=== PATIENT | male | born 1965 | race Native Hawaiian/Other Pacific Islander ===

== ENCOUNTER → 2017-12-16 08:25 | Outpatient (CLI) | payer OTHER, SELFPAY ==
[2017-12-16 09:29] LABS: Hemoglobin A1C% w Est Avg Glu 5.7 % (4.0-6.0)
[2017-12-16 09:30] LABS: Alanine Aminotransferase 47 IU/L (21-72); Albumin 4.3 g/dL (3.5-5.0); Albumin Globulin Ratio 1.5 (1.0-2.8); Alkaline Phosphatase 52 U/L (38-126); Aspartate Aminotransferase 31 IU/L (17-59); BUN Creatinine Ratio 12.7 (6-22); Bilirubin Total 0.7 mg/dL (0.2-1.3); Blood Urea Nitrogen 14 mg/dL (9-20); Calcium 9.2 mg/dL (8.4-10.2); Carbon Dioxide 29 mmol/L (22-32); Chloride 102 mmol/L (98-107); Cholesterol 135 mg/dL (140-199); Estimated Glomerular Filt Rate > 60.0 mL/min (>60); Globulin 2.9 g/dL (1.7-4.1); Glucose 111 mg/dL (70-100); HDL Cholesterol 31 mg/dL (40-60); HEMOLYSIS < 15 (0-50); LDL Cholesterol Calculated 78 mg/dL (<100); Potassium 4.1 mmol/L (3.4-5.1); Sodium 140 mmol/L (137-145); Total Protein 7.2 g/dL (6.3-8.2); Triglycerides 130 mg/dL (35-150)
[2017-12-16 09:39] LABS: Add Manual Diff / Slide Review NO; Basophils Percent Auto 1.2 % (0-2); Eosinophils Percent Auto 5.6 % (2-4); Hematocrit 45.4 % (41-53); Hemoglobin 15.6 g/dL (13.5-17.5); Lymphocytes Percent Auto 23.5 % (25-40); Mean Corpuscular HGB Conc 34.4 % (30-36); Mean Corpuscular Hemoglobin 29.1 PG (26-34); Mean Corpuscular Volume 84.6 fL (80-100); Monocytes Percent Auto 7.5 % (3-14); Neutrophils Absolute Auto 3700 /uL (3000-5900); Neutrophils Percent Auto 62.2 % (50-75); Platelet Count 253 X10^3/uL (150-400); Red Blood Cell Count 5.37 X10^6/uL (4.5-5.9); Red Cell Distribution Width 15.4 % (11.6-14.8)
[2017-12-16 09:56] LABS: Prostate Specific Antigen 0.599 ng/mL (0.10-4.00)
== END ==
PROVIDERS: PCP Family Medicine; Visit Provider Family Medicine
DX: I10 Essential (primary) hypertension (principal); R73.9 Hyperglycemia, unspecified; E78.00 Pure hypercholesterolemia, unspecified; Z12.5 Encounter for screening for malignant neoplasm of prostate
CPT/HCPCS: 36415; 80053; 80061; 83036; 84153; 85025

== ENCOUNTER → 2019-02-04 09:45 | Outpatient (CLI) | payer OTHER, SELFPAY ==
[2019-02-04 10:54] LABS: Creatinine Urine Random 147.2 mg/dL
[2019-02-04 10:56] LABS: Alanine Aminotransferase 29 IU/L (21-72); Albumin 4.5 g/dL (3.5-5.0); Albumin Globulin Ratio 1.6 (1.0-2.8); Alkaline Phosphatase 58 U/L (38-126); Aspartate Aminotransferase 41 IU/L (17-59); BUN Creatinine Ratio 12.7 (6-22); Blood Urea Nitrogen 14 mg/dL (9-20); Calcium 9.4 mg/dL (8.4-10.2); Carbon Dioxide 28 mmol/L (22-32); Chloride 101 mmol/L (98-107); Cholesterol 114 mg/dL (140-199); Estimated Glomerular Filt Rate > 60.0 mL/min (>60); Globulin 2.9 g/dL (1.7-4.1); Glucose 119 mg/dL (70-100); HDL Cholesterol 27 mg/dL (40-60); HEMOLYSIS < 15 (0-50); LDL Cholesterol Calculated 61 mg/dL (<100); Potassium 4.5 mmol/L (3.4-5.1); Sodium 138 mmol/L (137-145); Total Protein 7.4 g/dL (6.3-8.2); Triglycerides 129 mg/dL (35-150)
[2019-02-04 11:05] LABS: Microalbumin Urine Random < 0.6 mg/dL (0-1.6)
[2019-02-04 11:17] LABS: Hemoglobin A1C% w Est Avg Glu 5.4 % (4.0-6.0)
[2019-02-04 11:25] LABS: Thyroid Stimulating Hormone 0.71 uIU/mL (0.47-4.68)
== END ==
PROVIDERS: PCP Family Medicine; Visit Provider Physician Assistant
DX: E78.00 Pure hypercholesterolemia, unspecified (principal); I10 Essential (primary) hypertension; R73.01 Impaired fasting glucose
CPT/HCPCS: 36415; 80053; 80061; 82043; 82570; 83036; 84443

== ENCOUNTER → 2020-02-10 08:05 | Outpatient (CLI) | payer OTHER, SELFPAY ==
[2020-02-10 09:44] LABS: HEMOLYSIS < 15 (0-50)
[2020-02-10 09:49] LABS: Add Manual Diff / Slide Review NO; Basophils Absolute Auto 100 /uL (0-100); Basophils Percent Auto 1.2 % (0-2); Eosinophils Absolute Auto 200 /uL (0-450); Eosinophils Percent Auto 3.2 % (2-4); Hematocrit 45.7 % (41-53); Hemoglobin 15.2 g/dL (13.5-17.5); Lymphocytes Absolute Auto 1400 /uL (1100-4500); Lymphocytes Percent Auto 22.4 % (25-40); Mean Corpuscular HGB Conc 33.4 % (30-36); Mean Corpuscular Volume 86.7 fL (80-100); Monocytes Absolute Auto 500 /uL (0-900); Monocytes Percent Auto 7.6 % (3-14); Neutrophils Absolute Auto 4000 /uL (1500-7000); Neutrophils Percent Auto 65.6 % (50-75); Platelet Count 252 X10^3/uL (150-400); Red Blood Cell Count 5.27 X10^6/uL (4.5-5.9); Red Cell Distribution Width 14.9 % (11.6-14.8); White Blood Cell Count 6.1 X10^3/uL (4.5-11.0)
[2020-02-10 09:53] LABS: Alanine Aminotransferase 23 IU/L (<50); Albumin 4.7 g/dL (3.5-5.0); Albumin Globulin Ratio 1.4 (1.0-2.8); Alkaline Phosphatase 64 U/L (38-126); Aspartate Aminotransferase 28 IU/L (17-59); BUN Creatinine Ratio 12.8 (6-22); Bilirubin Total 0.8 mg/dL (0.2-1.3); Blood Urea Nitrogen 12 mg/dL (9-20); Calcium 9.4 mg/dL (8.4-10.2); Carbon Dioxide 29 mmol/L (22-32); Chloride 99 mmol/L (98-107); Cholesterol 114 mg/dL (140-199); Estimated Glomerular Filt Rate > 60.0 mL/min (>60); Globulin 3.3 g/dL (1.7-4.1); Glucose 105 mg/dL (70-100); HDL Cholesterol 35 mg/dL (40-60); LDL Cholesterol Calculated 59 mg/dL (<100); Potassium 3.8 mmol/L (3.4-5.1); Sodium 139 mmol/L (137-145); Triglycerides 102 mg/dL (35-150)
[2020-02-10 10:08] LABS: Free T3, Triiodothyronine Free 3.28 pg/mL (2.77-5.27); Free T4, Direct Thyroxine 1.06 ng/dL (0.78-2.19)
[2020-02-10 10:21] LABS: Thyroid Stimulating Hormone 1.49 uIU/mL (0.47-4.68)
[2020-02-10 11:20] LABS: Creatinine Urine Random 90.1 mg/dL
[2020-02-10 11:25] LABS: Microalbumin Urine Random < 0.6 mg/dL (0-1.6)
== END ==
PROVIDERS: PCP Nurse Practitioner; Referring Provider Nurse Practitioner; Visit Provider Nurse Practitioner
DX: E78.00 Pure hypercholesterolemia, unspecified (principal); I10 Essential (primary) hypertension; R73.01 Impaired fasting glucose; R73.9 Hyperglycemia, unspecified
CPT/HCPCS: 80053; 80061; 82043; 82570; 84153; 84439; 84443; 84481; 85025

== ENCOUNTER → 2020-05-11 07:57 | Outpatient (CLI) | payer OTHER, SELFPAY ==
[2020-05-11 09:26] LABS: Hemoglobin A1C% w Est Avg Glu 5.6 % (4.0-6.0)
[2020-05-11 09:28] LABS: Alanine Aminotransferase 23 IU/L (<50); Albumin 4.6 g/dL (3.5-5.0); Albumin Globulin Ratio 1.4 (1.0-2.8); Alkaline Phosphatase 52 U/L (38-126); Aspartate Aminotransferase 28 IU/L (17-59); BUN Creatinine Ratio 14.7 (6-22); Bilirubin Total 0.8 mg/dL (0.2-1.3); Blood Urea Nitrogen 14 mg/dL (9-20); Calcium 9.5 mg/dL (8.4-10.2); Carbon Dioxide 30 mmol/L (22-32); Chloride 102 mmol/L (98-107); Cholesterol 140 mg/dL (140-199); Estimated Glomerular Filt Rate > 60.0 mL/min (>60); Globulin 3.3 g/dL (1.7-4.1); Glucose 112 mg/dL (70-100); HDL Cholesterol 34 mg/dL (40-60); HEMOLYSIS 18 (0-50); LDL Cholesterol Calculated 84 mg/dL (<100); Potassium 4.2 mmol/L (3.4-5.1); Sodium 138 mmol/L (137-145); Total Protein 7.9 g/dL (6.3-8.2); Triglycerides 112 mg/dL (35-150)
[2020-05-11 09:38] LABS: Creatinine Urine Random 158.6 mg/dL
[2020-05-11 09:52] LABS: Free T3, Triiodothyronine Free 3.12 pg/mL (2.77-5.27); Free T4, Direct Thyroxine 1.03 ng/dL (0.78-2.19)
[2020-05-11 09:53] LABS: Microalbumin Urine Random < 0.6 mg/dL (0-1.6)
[2020-05-11 10:06] LABS: Thyroid Stimulating Hormone 1.84 uIU/mL (0.47-4.68)
== END ==
PROVIDERS: PCP Nurse Practitioner; Referring Provider Nurse Practitioner; Visit Provider Nurse Practitioner
DX: E78.00 Pure hypercholesterolemia, unspecified (principal); I10 Essential (primary) hypertension; R73.01 Impaired fasting glucose; R73.9 Hyperglycemia, unspecified; Z79.899 Other long term (current) drug therapy
CPT/HCPCS: 36415; 80053; 80061; 82043; 82570; 83036; 84439; 84443; 84481

== ENCOUNTER 2021-01-30 08:38 | Observation (INO) | payer OTHER, SELFPAY ==
[2021-01-30] VITALS (18 sets, daily range): BP systolic 101–143; BP diastolic 56–91; PULSE 61–84; RESP 14–22; TEMP 35.9–36.8; O2SAT 92–100; BMI 37.6
--- NOTE | 2021-01-30 08:42 | DI.RAD.S_ITS ---
PROCEDURE: XR CHEST 1V INDICATIONS: chest pain TECHNIQUE: One view of the chest was acquired. COMPARISON: None. FINDINGS: Surgical changes and devices: None. Lungs and pleura: Lungs are clear. No pleural effusions or pneumothorax. Mediastinum: Mediastinal contours appear normal. Heart size is normal. Bones and chest wall: No suspicious bony lesions. Overlying soft tissues appear unremarkable. IMPRESSION: No acute cardiopulmonary disease. Dictated by: Gena Box M.D. on 01/30/2021 at 9:43 Approved by: Gena Box M.D. on 01/30/2021 at 9:45
--- NOTE | 2021-01-30 09:19 | ED.GENADULT ---
HPI - General Adult General Chief complaint: Syncope Stated complaint: Passed out twice Time Seen by Provider: 01/30/21 08:55 Source: patient and family Mode of arrival: Ambulatory History of Present Illness HPI narrative: Patient is a 55-year-old male. Has a history of ?prediabetes ?is on metformin for this. States that he woke up this morning. Went to the gym. This is normal practice for him. He states that in the middle of his workout he started to feel very fatigued. He actually had to cut his 2nd half of the workout short because of this. Other than the fatigue had no other specific symptoms. No chest pain. No shortness of breath. He did state that afterwards he felt very off balance. He came home. He took a shower. He did eat a granola bar. Was sitting at the table. When he stood up he got cramps in his legs. This is also not uncommon for him although over the cramps today did not get better like they normally do. He made it to the refrigerator in order to drink some pickle juice which is his normal practice for this. He then felt very lightheaded. There was no room spinning sensation. Again no chest pain. No palpitations. No shortness of breath. He did pass out. He did feeling self fall to the ground. Did not hit his head. No was able to get back up with the help of his who heard him fall. That she was helping him get up he had a 2nd episode very similar to the 1st 1. There was no loss of bowel or bladder. No shaking activity consistent with seizures. She was able to help him to the couch. He did drink some ?liquid IV ?here in the emergency department he feels better than when he did earlier this morning but feels worse than when he did when he woke up. Does have a significant familial cardiac history. Related Data Previous Rx's Medication Instructions Recorded atorvastatin 40 mg tablet (Lipitor) 40 mg PO HS #90 tab 05/23/20 losartan 100 1 tab PO QDAY #90 tab 05/23/20 mg-hydrochlorothiazide 12.5 mg tablet metformin 500 mg tablet 500 mg PO BIDCC #180 tab 05/23/20 (Glucophage) Allergies Allergy/AdvReac Type Severity Reaction Status Date / Time lisinopril [LISINOPRIL] Allergy Intermediate hives and Unverified 12/19/18 15:40 swollen hands Review of Systems Constitutional Constitutional: Reports system reviewed and no additional complaints, except as documented Eyes Eyes: Reports system reviewed and no additional complaints, except as documented ENT Ears, Nose, Mouth, and Throat: Reports system reviewed and no additional complaints, except as documented Cardiovascular Cardiovascular: Reports as per HPI Respiratory Respiratory: Reports as per HPI Gastrointestinal Gastrointestinal: Reports system reviewed and no additional complaints, except as documented Genitourinary Genitourinary: Reports system reviewed and no additional complaints, except as documented Musculoskeletal Musculoskeletal: Reports system reviewed and no additional complaints, except as documented Integumentary/Breasts Skin/Breast: Reports system reviewed and no additional complaints, except as documented Neurologic Neurologic: Reports system reviewed and no additional complaints, except as documented Psychiatric Psychiatric: Reports system reviewed and no additional complaints, except as documented Endocrine Endocrine: Reports system reviewed and no additional complaints, except as documented Hematologic/Lymphatic On Anticoagulants: No Allergic/Immunologic Allergic/Immunologic: Reports system reviewed and no additional complaints, except as documented Patient History Medical History (Updated 01/30/21 @ 13:09 by Fernando Mcclain DO) Essential hypertension (Unknown) Essential hypertension with goal blood pressure less than 140/90 (09/06/15) Hyperglycemia (09/06/15) Hyperglycemia (~2013) Hyperlipidemia (Unknown) Pure hypercholesterolemia (09/06/15) Surgical History No history of previous surgery Family History Father Diabetes mellitus Social History household members: spouse occupational status: employed leisure activities: exercise Smoking Status: Never smoker second hand exposure: No alcohol intake: current substance use type: marijuana Smoking Status: Never smoker alcohol intake frequency: a few times a month Substance Use Type: does not use Exam Initial Vital Signs Initial Vital Signs: Vital Signs Temperature 98.2 F 01/30/21 08:51 Pulse Rate 76 01/30/21 08:51 Respiratory Rate 17 01/30/21 08:51 Blood Pressure 138/77 01/30/21 08:51 Pulse Oximetry 99 01/30/21 08:51 Const General: cooperative, comfortable and well developed [facility] Head: normal to inspection and normocephalic Eyes General: appearance normal, both eyes and all related structures Neck Neck: normal visual inspection Resp Auscultation: clear to auscultation bilaterally Cardio Rate: regular rate Rhythm: regular rhythm GI Inspection: normal to inspection Palpation: soft, No firm and No tender Skin General: no rashes or lesions noted Neuro General: patient alert, patient awake, patient oriented x3, moves all extremities and not confused Cognition: normal cognition Speech: speech normal Motor: muscle tone normal throughout Sensory Exam: no sensory deficits noted Extrem General: normal to inspection and capillary refill normal Psych Appearance: grossly normal and well kempt Scores GCS Lesli coma scale eye opening: Spontaneous [place] coma scale verbal response: Orientated Lesli coma scale motor response: Obey commands Lesli coma scale total score: 15 Course Orders Ordered: ED Orders 01/30/21 08:42 XR chest 1V Stat EKG-12 Lead Stat 01/30/21 09:07 Complete Blood Count AUTO DIFF Stat Comprehensive Metabolic Panel Stat Lipase Stat Magnesium Stat Troponin & CK Cardiac Panel Stat 01/30/21 11:45 Troponin & CK Cardiac Panel Stat 01/30/21 12:03 Urine Culture Stat Urine Microscopic Stat 01/30/21 13:12 COVID19 - ADMIT (REHAB THERAPIST swab/PCR) Stat Acetaminophen (Acetaminophen 325 Mg Tablet) 650 mg PO Q6HR PRN PRN Reason: Fever/Mild Pain (1-3) Aspirin (Aspirin Ec 81 Mg Tablet) 81 mg PO DAILY JESSICA Atorvastatin Calcium (Atorvastatin 20 Mg Tablet) 40 mg PO BEDTIME JESSICA Dextrose (Dextrose 50 % In Water 25 Gm/50 Ml Syringe) 25 gm IV PRN PRN PRN Reason: Hypoglycemia Enoxaparin Sodium (Enoxaparin 40 Mg/0.4 Ml Syringe) 40 mg SUBCUT DAILY JESSICA Insulin Human Lispro (Insulin Lispro 100 Unit/Ml 3ml Vial) 0 unit SUBCUT ACHS JESSICA; Protocol Last Admin: 01/30/21 16:52 Dose: Not Given Documented by: KYLAH Discontinued Medications Aspirin (Aspirin 325 Mg Tablet) 325 mg PO NOW ONE Stop: 01/30/21 13:10 Last Admin: 01/30/21 13:35 Dose: 325 mg Documented by: ATAYLOR Sodium Chloride (Normal Saline 0.9%) 1,000 mls @ 1,000 mls/hr IV BOLUS ONE Stop: 01/30/21 16:11 Last Admin: 01/30/21 16:58 Dose: 1,000 mls/hr Documented by: KYLAH Vital Signs Vital signs: Vital Signs - 8 hr 01/30/21 09:12 01/30/21 09:30 01/30/21 10:00 Pulse Rate 84 72 71 Respiratory Rate 22 21 16 Blood Pressure 143/91 H 120/74 108/66 Pulse Oximetry 99 96 95 01/30/21 10:30 01/30/21 11:00 01/30/21 11:30 Pulse Rate 64 64 67 Respiratory Rate 15 14 17 Blood Pressure 108/65 101/64 115/71 Pulse Oximetry 95 97 97 01/30/21 12:00 01/30/21 12:30 01/30/21 12:33 Pulse Rate 67 64 63 Respiratory Rate 19 18 Blood Pressure 123/75 115/75 Pulse Oximetry 96 100 99 01/30/21 13:00 Pulse Rate 67 Respiratory Rate 16 Blood Pressure 108/69 Pulse Oximetry 98 Medical Decision Making Medical Records Medical records reviewed: Yes I reviewed the patient's medical records. Lab Data Lab results reviewed: Yes I reviewed the patient's lab results. Result diagrams: 01/30/21 09:07 01/30/21 09:07 Labs: Lab Results 01/30/21 01/30/21 01/30/21 Range/Units 09:07 09:07 09:07 WBC 11.0 (4.5-11.0) X10^3/uL RBC 5.46 (4.5-5.9) X10^6/uL Hgb 15.9 (13.5-17.5) g/dL Hct 48.3 (41-53) % MCV 88.5 (80-100) fL MCH 29.2 (26-34) PG MCHC 32.9 (30-36) % RDW 14.6 (11.6-14.8) % Plt Count 275 (150-400) X10^3/uL Neut % (Auto) 84.3 H (50-75) % Lymph % (Auto) 8.6 L (25-40) % [place] % (Auto) 6.4 (3-14) % Eos % (Auto) 0.3 L (2-4) % Baso % (Auto) 0.4 (0-2) % Neut # (Auto) 9300 H (7120-0741) /uL Lymph # (Auto) 900 L (0776-3546) /uL [place] # (Auto) 700 (0-900) /uL Eos # (Auto) 0 (0-450) /uL Baso # (Auto) 0 (0-100) /uL Sodium 138 (137-145) mmol/L Potassium 4.7 (3.4-5.1) mmol/L Chloride 101 (98-107) mmol/L Carbon Dioxide 28 (22-32) mmol/L BUN 20 (9-20) mg/dL Creatinine 1.66 H (0.66-1.25) mg/dL Estimated GFR 43.6 L (>60) mL/min BUN/Creatinine Ratio 12.0 (6-22) Glucose 121 H (70-100) mg/dL Calcium 9.9 (8.4-10.2) mg/dL Magnesium 2.2 (1.6-2.3) mg/dL Total Bilirubin 1.1 (0.2-1.3) mg/dL AST 54 (17-59) IU/L ALT 36 (<50) IU/L Alkaline Phosphatase 61 (38-126) U/L Total Creatine Kinase 454 H (55-170) U/L CK-MB (CK-2) 4.50 H (<2.37) ng/mL CK-MB (CK-2) Rel Index 1.0 L (1.5-5.0) % Troponin I 0.048 H (0.01-0.034) ng/mL Total Protein 8.1 (6.3-8.2) g/dL Albumin 4.8 (3.5-5.0) g/dL Globulin 3.3 (1.7-4.1) g/dL Albumin/Globulin Ratio 1.5 (1.0-2.8) Lipase 122 (23-300) U/L Urine RBC (0-5/HPF) Urine WBC (0-5/HPF) Ur Squamous Epith Cells (0-5/HPF) Uric Acid Crystals (None) Amorphous Sediment Urine Bacteria (None) Urine Mucus (Negative) Ur Culture Indicated? 01/30/21 01/30/21 Range/Units 11:45 12:03 WBC (4.5-11.0) X10^3/uL RBC (4.5-5.9) X10^6/uL Hgb (13.5-17.5) g/dL Hct (41-53) % MCV (80-100) fL MCH (26-34) PG MCHC (30-36) % RDW (11.6-14.8) % Plt Count (150-400) X10^3/uL Neut % (Auto) (50-75) % Lymph % (Auto) (25-40) % [place] % (Auto) (3-14) % Eos % (Auto) (2-4) % Baso % (Auto) (0-2) % Neut # (Auto) (5768-5649) /uL Lymph # (Auto) (2812-4706) /uL [place] # (Auto) (0-900) /uL Eos # (Auto) (0-450) /uL Baso # (Auto) (0-100) /uL Sodium (137-145) mmol/L Potassium (3.4-5.1) mmol/L Chloride (98-107) mmol/L Carbon Dioxide (22-32) mmol/L BUN (9-20) mg/dL Creatinine (0.66-1.25) mg/dL Estimated GFR (>60) mL/min BUN/Creatinine Ratio (6-22) Glucose (70-100) mg/dL Calcium (8.4-10.2) mg/dL Magnesium (1.6-2.3) mg/dL Total Bilirubin (0.2-1.3) mg/dL AST (17-59) IU/L ALT (<50) IU/L Alkaline Phosphatase (38-126) U/L Total Creatine Kinase 443 H (55-170) U/L CK-MB (CK-2) 4.13 H (<2.37) ng/mL CK-MB (CK-2) Rel Index 0.9 L (1.5-5.0) % Troponin I 0.044 H (0.01-0.034) ng/mL Total Protein (6.3-8.2) g/dL Albumin (3.5-5.0) g/dL Globulin (1.7-4.1) g/dL Albumin/Globulin Ratio (1.0-2.8) Lipase (23-300) U/L Urine RBC None seen (0-5/HPF) Urine WBC 5-10/hpf H (0-5/HPF) Ur Squamous Epith Cells 0-1 /hpf (0-5/HPF) Uric Acid Crystals Few H (None) Amorphous Sediment 2+ Urine Bacteria Few (2-10) H (None) Urine Mucus 1+ H (Negative) Ur Culture Indicated? Specimen cultured Urine Dip Bedside Urine Glucose Negative Bedside Urine Bilirubin - Negative Bedside Urine Ketone - Negative Urine Specific [place] 1.030 Bedside Urine Occult Blood - Negative Bedside Urine pH 6.0 Bedside Urine Protein + 30 Bedside Urine Urobilinogen - Negative Bedside Urine Nitrite - Negative Bedside Urine Leukocytes - Negative Esterase Point of care testing: Urine Dip Bedside Urine Glucose Negative Bedside Urine Bilirubin - Negative Bedside Urine Ketone - Negative Urine Specific [place] 1.030 Bedside Urine Occult Blood - Negative Bedside Urine pH 6.0 Bedside Urine Protein + 30 Bedside Urine Urobilinogen - Negative Bedside Urine Nitrite - Negative Bedside Urine Leukocytes - Negative Esterase Imaging Data Chest x-ray: Radiologist's Impression: [address] [address] XRay Report Signed Patient: Eleazar Tatum MR#: [id number] : 1965 Acct:[id number] Age/Sex: 55 / M Date of Service: 01/30/21 Loc: ED Accession Number: [id number] ?? Procedure: XR chest 1V Ordering Provider: Fernando Mcclain D.O. PROCEDURE:? XR CHEST 1V ? INDICATIONS:? chest pain ? TECHNIQUE:? One view of the chest was acquired.? ? COMPARISON:? None. ? FINDINGS:? ? Surgical changes and devices:? None.? ? Lungs and pleura:? Lungs are clear.? No pleural effusions or pneumothorax.? ? Mediastinum:? Mediastinal contours appear normal.? Heart size is normal.? ? Bones and chest wall:? No suspicious bony lesions.? Overlying soft tissues appear unremarkable.? ? IMPRESSION:? No acute cardiopulmonary disease. ? ? Dictated by: Gena Box M.D. on 01/30/2021 at 9:43 ? ? Approved by: Gena Box M.D. on 01/30/2021 at 9:45? ECG Data Attestation: I personally reviewed and interpreted this ECG as follows: Interpretation: Sinus rhythm Ventricular rate is 69 LVH Normal QRS Normal QTC No ST T wave changes MDM Narrative Medical decision making narrative: Vital signs unremarkable. EKG is unremarkable. Low suspicion for CVA. Patient does have a troponin that is above the 99th percentile. He has no chest pain or palpitations. 2 hour troponin unchanged. Patient does have a significant family history to include a father who had a heart attack in his late 40s/early 50s. Patient has never had any risk stratification. Given his presentation I do feel admission to the hospital for risk stratification is warranted. Discussed the case with Dr. Guerrero with Internal Medicine who will admit for further evaluation treatment. I discussed was the patient is well who expressed understanding. Discharge Plan Departure Patient Disposition: Admitted as Observation Clinical Impression: Syncope, Elevated troponin Admit Date/Time: 01/30/21 13:08 Admit Provider: Jamel Guerrero
[2021-01-30 09:27] LABS: Add Manual Diff / Slide Review NO; Basophils Absolute Auto 0 /uL (0-100); Basophils Percent Auto 0.4 % (0-2); Eosinophils Absolute Auto 0 /uL (0-450); Eosinophils Percent Auto 0.3 % (2-4); Hematocrit 48.3 % (41-53); Hemoglobin 15.9 g/dL (13.5-17.5); Lymphocytes Absolute Auto 900 /uL (1100-4500); Lymphocytes Percent Auto 8.6 % (25-40); Mean Corpuscular HGB Conc 32.9 % (30-36); Mean Corpuscular Hemoglobin 29.2 PG (26-34); Mean Corpuscular Volume 88.5 fL (80-100); Monocytes Absolute Auto 700 /uL (0-900); Monocytes Percent Auto 6.4 % (3-14); Neutrophils Absolute Auto 9300 /uL (1500-7000); Neutrophils Percent Auto 84.3 % (50-75); Platelet Count 275 X10^3/uL (150-400); Red Blood Cell Count 5.46 X10^6/uL (4.5-5.9); Red Cell Distribution Width 14.6 % (11.6-14.8)
[2021-01-30 09:48] LABS: Alanine Aminotransferase 36 IU/L (<50); Albumin 4.8 g/dL (3.5-5.0); Albumin Globulin Ratio 1.5 (1.0-2.8); Alkaline Phosphatase 61 U/L (38-126); Aspartate Aminotransferase 54 IU/L (17-59); Bilirubin Total 1.1 mg/dL (0.2-1.3); Blood Urea Nitrogen 20 mg/dL (9-20); Calcium 9.9 mg/dL (8.4-10.2); Carbon Dioxide 28 mmol/L (22-32); Chloride 101 mmol/L (98-107); Creatine Kinase 454 U/L (55-170); Estimated Glomerular Filt Rate 43.6 mL/min (>60); Globulin 3.3 g/dL (1.7-4.1); Glucose 121 mg/dL (70-100); HEMOLYSIS < 15 (0-50); Lipase 122 U/L (23-300); Potassium 4.7 mmol/L (3.4-5.1); Sodium 138 mmol/L (137-145); Total Protein 8.1 g/dL (6.3-8.2)
[2021-01-30 09:53] LABS: Magnesium 2.2 mg/dL (1.6-2.3)
[2021-01-30 10:00] LABS: Troponin I 0.048 ng/mL (0.01-0.034)
--- NOTE | 2021-01-30 12:09 | PC.NURSE ---
Patient was able to ambulate on his own to the bathroom. No complaints of dizziness or light-headed.
[2021-01-30 12:12] LABS: Creatine Kinase 443 U/L (55-170)
[2021-01-30 12:23] LABS: RBC Urine None Seen (0-5/HPF)
[2021-01-30 12:25] LABS: Troponin I 0.044 ng/mL (0.01-0.034)
[2021-01-30 12:28] LABS: CKMB % Relative Index 0.9 % (1.5-5.0); Creatine Kinase MB 4.13 ng/mL (<2.37)
[2021-01-30 13:02] LABS: Amorphous Sediment Urine 2+; Bacteria Urine Few (2-10); Culture Indicated Urine Specimen Cultured; Mucus Urine 1+ (Negative); Squamous Epithelial Cell Urine 0-1 /HPF (0-5/HPF); Uric Acid Crystals Urine Few; WBC Urine 5-10/HPF (0-5/HPF)
[2021-01-30] MEDS: ASPIRIN 325 MG TABLET PO (13:35)
[2021-01-30 14:09] LABS: COVID19 - ADMIT (NP swab/PCR) Negative (Negative)
--- NOTE | 2021-01-30 14:19 | PC.NURSE ---
Patient admitted to room 215 around 1345. He is alert and oriented x3, denies pain or dizziness. Answers all questions appropriately. He states that he passed out twice at home and his brought him to the ER. He has been oriented to his room. Lying supine in bed, Skin clear accept for a knee abrasion that he obtained when falling down. Dressing has been applied to knee abrasion. Patient resting now.
--- NOTE | 2021-01-30 15:11 | DI.ECHO.S_ITS ---
[facility]---------+ [facility] +---------+ : : [address] [place] : : : : [id number] : : : : Phone: [phone] Echocardiogram Report + + :Name: CASSIDY MOORE Study Date: 01/31/2021 Height: 71 in : :[facility] ReadingLocation: Weight: 261 lb : : Gender: Male BSA: 2.4 m2 : :: 1965 Age: 55 yrs BP: 108/69 mmHg: :Reason For Study: Syncope : :Ordering Physician: : :FROYLAN MCKEON Performed By: Brad Acosta : :Referring: FROYLAN MCKEON : + + Interpretation Summary The left ventricle is mildly dilated. The ejection fraction is estimated to be 50-55%. The right ventricle is normal in size and function. There is mild tricuspid regurgitation. The right ventricular systolic pressure is estimated to be at least 25 mmHg based on an estimated right atrial pressure of 3 mm Hg. Procedure: A two-dimensional transthoracic echocardiogram with color flow and Doppler was performed. The study quality was technically adequate. There is no prior echocardiogram noted for this patient. The patient was in normal sinus rhythm during the exam. Left Ventricle: There is normal left ventricular wall thickness. The left ventricle is mildly dilated. There is no thrombus. The ejection fraction is estimated to be 50-55%. There are no focal wall motion abnormalities. MV E/A: 1.0 Med Peak E' Reuben: 6.9 cm/sec E/E' med: 11.7. Right Ventricle: The right ventricle is normal in size and function. Atria: The left atrium is borderline dilated. Right atrial size is normal. There is no Doppler evidence for an interatrial shunt. Mitral Valve: There is mild mitral annular calcification. There is trace mitral regurgitation. Aortic Valve: The aortic valve is normal in structure and function. The aortic valve is trileaflet. There is no aortic valve stenosis. No aortic regurgitation is present. Tricuspid Valve: The tricuspid valve is normal in structure and function. There is mild tricuspid regurgitation. The right ventricular systolic pressure is estimated to be at least 25 mmHg based on an estimated right atrial pressure of 3 mm Hg. Pulmonic Valve: The pulmonic valve leaflets are thin and pliable; valve motion is normal. There is trace pulmonic regurgitation. Great Vessels: The aortic root is normal size. The ascending aorta is at the upper limits of normal in size. The IVC is of normal diameter and collapses greater than 50% with a sniff. This suggests a low right atrial pressure of 3 mm Hg. Pericardium/ Pleura There is no pericardial effusion. There is no pleural effusion. MMode/2D Measurements & Calculations LVIDd: 5.9 cm LVOT diam: 2.3 cm LVIDs: 4.1 cm Ao root diam: 3.5 cm FS: 30.8 % asc Aorta Diam: 3.9 cm IVSd: 1.1 cm LVPWd: 0.92 cm LV lakhani. diameter/BSA (cm/m^2): 2.5 LV sys. diameter/BSA (cm/m^2): 1.7 LA A2 area: 23.3 cm2 RA long axis: 5.8 cm LA A4 area: 25.4 cm2 RA area: 18.9 cm2 LA length (vol): 6.2 cm RA vol: 52.5 ml LA vol: 81.0 ml RA : 22.2 ml/m2 LA vol index: 34.3 ml/m2 TAPSE: 1.9 cm Doppler Measurements & Calculations Ao V2 max: 178.7 cm/sec LVOT Max Reuben: 103.7 cm/sec Ao V2 mean: 108.8 cm/sec LV V1 max P.3 mmHg Ao max P.8 mmHg LV V1 VTI: 20.2 cm Ao mean P.4 mmHg CRYSTAL(I,D): 3.3 cm2 Ao V2 VTI: 25.7 cm CRYSTAL(V,D): 2.4 cm2 sev ratio: 0.79 CRYSTAL indexed to BSA (cm^2/m^2): 1.4 MV E max reuben: 80.4 cm/sec TR max reuben: 237.4 cm/sec MV A max reuben: 78.8 cm/sec TR max P.3 mmHg MV E/A: 1.0 PA pr(Accel): 50.7 mmHg Med Peak E' Reuben: 6.9 cm/sec E/E' med: 11.7 Lat Peak E' Reuben: 10.7 cm/sec E/E' lat: 7.5 E/e' average: 9.6 MV dec time: 0.26 sec SV(LVOT): 84.4 ml Reading Physician:12:05 PM
--- NOTE | 2021-01-30 15:11 | DI.NM.S_ITS ---
PROCEDURE: NM EXERCISE TREADMILL NON NUC COMPARISON: None. INDICATIONS: Elevated troponin FINDINGS: Resting ECG sinus rhythm. Rhett protocol 9 minutes, 15 seconds, 9.9 METS, MANJULA +7%. Peak heart rate 174, 106% of peak predicted. Max blood pressure 220/100. Stress ECG sinus tachycardia, no ST segment changes, no arrhythmia. IMPRESSION: No evidence of exercise-induced ischemia or arrhythmia. Good exercise capacity. Hypertensive response to exercise. Dictated by: Opal Herrera D.O. on 01/31/2021 at 13:20 Approved by: Opal Herrera M.D. on 01/31/2021 at 13:25
--- NOTE | 2021-01-30 15:11 | DI.US.S_ITS ---
PROCEDURE: US RENAL COMPLETE INDICATIONS: john TECHNIQUE: Real-time scanning was performed of the kidneys and bladder, with image documentation. COMPARISON: None. FINDINGS: Kidneys: Kidneys are normal in size. Right kidney measures 12.2 cm long; left kidney measures 12.6 cm long. Right renal cortical thickness is 2.1 cm; left renal cortical thickness is 2.7 cm. Renal cortical echotexture is normal. No hydronephrosis or nephrolithiasis. No suspicious solid mass lesions. Bladder: Pre-void bladder volume is 177 mL. Post-void residual is 47 mL. Pre-void images demonstrate no intraluminal masses or stones. On pre-void images, both the right and left ureteral jets are noted with color Doppler interrogation. (Of note, ureteral jets may not be detectable in up to 25% of cases due to insufficient differences in specific gravity between ureteral and bladder urine). Miscellaneous: No free pelvic fluid. IMPRESSION: Normal renal sonogram without evidence of hydronephrosis. Dictated by: Digna García MD, PhD on 01/30/2021 at 16:26 Approved by: Digna García MD, PhD on 01/30/2021 at 16:27
--- NOTE | 2021-01-30 16:46 | PM.HP.1 ---
History of Present Illness History of Present Illness Date Patient Seen: 01/30/21 Time Patient Seen: 11:00 Chief complaint: Passed out twice Narrative: Mr. Tatum is a 55M with PMH DM, HTN, HL who comes in to the hospital today with syncope. He notes that he had been feeling well until today. This AM he went to the gym and was working out and was more fatigued then usual. He went home, developed leg cramps, dizziness, lightheaded, and had to lower himself to the floor. Later he noted he had an episode where he completely passed out. He feels slightly dehydrated. He has been eating well. No vomiting, diarrhea. No changes in urination. He had no seizure like activity. In the ED workup was done, vitals were unremarkable. Labs notable for WBC of 11, BUN 20, creatinine 1.66, glucose 121. CK 454, troponin 0.048 then 0.044. UA showed WBCs, uric acid crystals, urine bacteria. Culture sent. EKG showed no acute ischemia. Chest xray showed no acute process. He was given aspirin and admitted for further treatment. Family history: uncle/aunt, grandfather with CAD Patient History Medical History Essential hypertension (Unknown) Essential hypertension with goal blood pressure less than 140/90 (09/06/15) Hyperglycemia (09/06/15) Hyperglycemia (~2013) Hyperlipidemia (Unknown) Pure hypercholesterolemia (09/06/15) Surgical History No history of previous surgery Family & Social History Family History Father Diabetes mellitus Social History: household members spouse Prior Living Arrangements House Safety & Behavioral: Feels Safe in Current Yes Environment Been Physically Hurt or No Threatened By a Person Suicidal Ideation Description None Suicide Plan Description No Plan Tobacco & Substance use: Smoking Status Never smoker alcohol intake current alcohol intake frequency a few times a month Substance Use Type does not use Meds Home Medications and Allergies Home Medications Medication Instructions Recorded Confirmed Type atorvastatin 40 mg tablet (Lipitor) 40 mg PO HS #90 tab 05/23/20 01/30/21 Rx losartan 100 1 tab PO QDAY #90 tab 05/23/20 01/30/21 Rx mg-hydrochlorothiazide 12.5 mg tablet metformin 500 mg tablet 500 mg PO BIDCC #180 tab 05/23/20 01/30/21 Rx (Glucophage) Allergies Allergy/AdvReac Type Severity Reaction Status Date / Time lisinopril [LISINOPRIL] Allergy Intermediate hives and Unverified 12/19/18 15:40 swollen hands Review of Systems Review of Systems Narrative: 14 systems reviewed and negative aside from HPI Exam Vital Signs (past 8 hours): - 01/30/21 08:51 01/30/21 09:05 01/30/21 09:12 Temperature 98.2 F Pulse Rate 76 72 84 Respiratory Rate 17 21 22 Blood Pressure 138/77 143/91 H Pulse Oximetry 99 98 99 01/30/21 09:30 01/30/21 10:00 01/30/21 10:30 Temperature Pulse Rate 72 71 64 Respiratory Rate 21 16 15 Blood Pressure 120/74 108/66 108/65 Pulse Oximetry 96 95 95 01/30/21 11:00 01/30/21 11:30 01/30/21 12:00 Temperature Pulse Rate 64 67 67 Respiratory Rate 14 17 19 Blood Pressure 101/64 115/71 123/75 Pulse Oximetry 97 97 96 01/30/21 12:30 01/30/21 12:33 01/30/21 13:00 Temperature Pulse Rate 64 63 67 Respiratory Rate 18 16 Blood Pressure 115/75 108/69 Pulse Oximetry 100 99 98 01/30/21 13:30 01/30/21 16:02 Temperature 97.8 F Pulse Rate 65 65 Respiratory Rate 19 15 Blood Pressure 116/74 121/80 Pulse Oximetry 99 99 Oxygen Delivery Method Room Air Narrative Exam Narrative: GEN: no acute distress HEENT: moist mucous mebranes, PERRL NECK: trachea midline, no JVD CV: regular rate and rhythm PULM: clear bilaterally with no wheezes, rhonchi, rales ABD: soft, nontender, nondistended, no organomegaly, normal bowel sounds EXT: warm and well perfused, no edema NEURO: awake, alert, oriented, no focal deficits SKIN: warm, dry, no rashes noted PSYCH: pleasant, cooperative Objective Labs Result Diagrams: 01/30/21 09:07 01/30/21 09:07 Labs: Laboratory Results - last 24 hr 01/30/21 01/30/2121 09:07 09:07 09:07 WBC 11.0 RBC 5.46 Hgb 15.9 Hct 48.3 MCV 88.5 MCH 29.2 MCHC 32.9 RDW 14.6 Plt Count 275 Neut % (Auto) 84.3 H Lymph % (Auto) 8.6 L [place] % (Auto) 6.4 Eos % (Auto) 0.3 L Baso % (Auto) 0.4 Neut # (Auto) 9300 H Lymph # (Auto) 900 L [place] # (Auto) 700 Eos # (Auto) 0 Baso # (Auto) 0 Sodium 138 Potassium 4.7 Chloride 101 Carbon Dioxide 28 BUN 20 Creatinine 1.66 H Estimated GFR 43.6 L BUN/Creatinine Ratio 12.0 Glucose 121 H Calcium 9.9 Magnesium 2.2 Total Bilirubin 1.1 AST 54 ALT 36 Alkaline Phosphatase 61 Total Creatine Kinase 454 H CK-MB (CK-2) 4.50 H CK-MB (CK-2) Rel Index 1.0 L Troponin I 0.048 H Total Protein 8.1 Albumin 4.8 Globulin 3.3 Albumin/Globulin Ratio 1.5 Lipase 122 Urine RBC Urine WBC Ur Squamous Epith Cells Uric Acid Crystals Amorphous Sediment Urine Bacteria Urine Mucus Ur Culture Indicated? SARS-CoV-2 (PCR) 01/30/21 01/30/21 01/30/21 11:45 12:03 13:12 WBC RBC Hgb Hct MCV MCH MCHC RDW Plt Count Neut % (Auto) Lymph % (Auto) [place] % (Auto) Eos % (Auto) Baso % (Auto) Neut # (Auto) Lymph # (Auto) [place] # (Auto) Eos # (Auto) Baso # (Auto) Sodium Potassium Chloride Carbon Dioxide BUN Creatinine Estimated GFR BUN/Creatinine Ratio Glucose Calcium Magnesium Total Bilirubin AST ALT Alkaline Phosphatase Total Creatine Kinase 443 H CK-MB (CK-2) 4.13 H CK-MB (CK-2) Rel Index 0.9 L Troponin I 0.044 H Total Protein Albumin Globulin Albumin/Globulin Ratio Lipase Urine RBC None seen Urine WBC 5-10/hpf H Ur Squamous Epith Cells 0-1 /hpf Uric Acid Crystals Few H Amorphous Sediment 2+ Urine Bacteria Few (2-10) H Urine Mucus 1+ H Ur Culture Indicated? Specimen cultured SARS-CoV-2 (PCR) Negative Assessment & Plan Assessment & Plan narrative: Mr. Tatum is a 55M with PMH DM, HTN, HL who comes in with syncope, found to have WINNIE. 1. Syncope, acute -etiology not clear -may be related to dehydration, doubt seizure, will need to rule out cardiac cause -ordered ECHO -check orthostatics -hold BP medications 2. Elevated troponin -no chest pain -may be related to cardiac demad ischemia from exercise and elevated creatinine -order for aspirin and statin -order for stress test 3. WINNIE -last creatinine last year was normal -possibly elevated secondary to hypovolemia, also on losartan/hctz -hold BP meds for now -trial of IV fluid to see if creatinine improves -order for renal ultrasound 4. Diabetes -hold metformin -ordered for ISS 5. Obesity -BMI 37.7 -recommed lifestyle changes Diet: cardiac IVF: prn bolus CODE: Full Proxy: Paula Tatum, spouse I have utilized all available immediate resources to obtain, update, or review the patient's current medications. Time Spent With Patient Critical Care time: I spent a total of [] minutes of critical care time on this patient's care today; this time is exclusive of procedural time. Quality VTE Deep Vein Thrombosis/Pulmonary Embolism Present on Admission: No
[2021-01-30] MEDS: SODIUM CHLORIDE 0.9% 1,000 ML 1000 ML IV (16:58)
[2021-01-30] MEDS: ATORVASTATIN 20 MG TABLET 40 MG PO (20:34)
[2021-01-31 03:30] VITALS: BP 127/69; PULSE 65; RESP 18; TEMP 36.1; O2SAT 94
[2021-01-31 05:52] LABS: Hematocrit 45.9 % (41-53); Hemoglobin 15.1 g/dL (13.5-17.5); Mean Corpuscular HGB Conc 32.8 % (30-36); Mean Corpuscular Hemoglobin 28.9 PG (26-34); Platelet Count 259 X10^3/uL (150-400); Red Blood Cell Count 5.22 X10^6/uL (4.5-5.9); Red Cell Distribution Width 14.4 % (11.6-14.8); White Blood Cell Count 6.7 X10^3/uL (4.5-11.0)
[2021-01-31 05:53] LABS: Add Manual Diff / Slide Review YES
[2021-01-31 06:49] LABS: BUN Creatinine Ratio 15.5 (6-22); Blood Urea Nitrogen 18 mg/dL (9-20); Calcium 9.2 mg/dL (8.4-10.2); Carbon Dioxide 25 mmol/L (22-32); Chloride 105 mmol/L (98-107); Estimated Glomerular Filt Rate > 60.0 mL/min (>60); Glucose 118 mg/dL (70-100); HEMOLYSIS < 15 (0-50); Potassium 4.2 mmol/L (3.4-5.1); Sodium 137 mmol/L (137-145)
[2021-01-31 07:00] VITALS: O2SAT 98
[2021-01-31 07:30] VITALS: BP 138/71; PULSE 68; RESP 16; TEMP 36.2; O2SAT 94
[2021-01-31 08:08] LABS: Neutrophils Absolute Manual 3953 /uL (3000-5900); Total Cells Counted 100
[2021-01-31 08:11] LABS: RBC Morphology Normal Morphology
[2021-01-31] MEDS: ENOXAPARIN 40 MG/0.4 ML SYRINGE SUBCUT (08:49)
[2021-01-31] MEDS: ASPIRIN EC 81 MG TABLET PO (08:49)
[2021-01-31] MEDS: SODIUM CHLORIDE 0.9% FLUSH 10 ML IV (08:49)
[2021-01-31 09:41] LABS: Troponin I < 0.012 ng/mL (0.01-0.034)
--- NOTE | 2021-01-31 11:30 | PC.NURSE ---
Patient off unit for stress test.
[2021-01-31 12:00] VITALS: BP 120/96; PULSE 88; RESP 16; TEMP 36.4; O2SAT 93
--- NOTE | 2021-01-31 12:03 | P.DS_ITS ---
History of Present Illness History of Present Illness Chief complaint: Passed out twice Narrative: Mr. Tatum is a 55M with PMH DM, HTN, HL who comes in to the hospital today with syncope. He notes that he had been feeling well until today. This AM he went to the gym and was working out and was more fatigued then usual. He went home, developed leg cramps, dizziness, lightheaded, and had to lower himself to the floor. Later he noted he had an episode where he completely passed out. He feels slightly dehydrated. He has been eating well. No vomiting, diarrhea. No changes in urination. He had no seizure like activity. In the ED workup was done, vitals were unremarkable. Labs notable for WBC of 11, BUN 20, creatinine 1.66, glucose 121. CK 454, troponin 0.048 then 0.044. UA showed WBCs, uric acid crystals, urine bacteria. Culture sent. EKG showed no acute ischemia. Chest xray showed no acute process. He was given aspirin and admitted for further treatment. Family history: uncle/aunt, grandfather with CAD Discharge Providers Provider Date of admission: 01/30/21 13:08 Discharge Date: 01/31/21 Primary care physician: TIANA Durán Discharge provider: Jamel Guerrero MD Summary Hospital Course Discharge Diagnosis: 1. Syncope 2. Cardiac demand ischemia 3. WINNIE 4. Type 2 Diabetes 5. Obesity, BMI 37.7 Hospital Course: Mr. Tatum was admitted after a syncopal episode. He had a prodrome before this. He had been working out earlier. He appeared dehydrated initially on exam, and had an WINNIE that resolved with IV fluids. He was losartan/hctz which may have contributed to his symptoms. This was held on discharge. His troponin did peak at 0.048, then downtrended, he had no EKG changes or chest pain. He was started on aspirin, and continued on statin. He had an unremarkable stress test. He had an Echocardiogram with mildly dilated LV, EF 50-55% and mild TR. He had an unremarkable renal ultrasound. He was feeling improved and discharged home. He was recommended to follow up with his PCP to consider Holter monitor, and to restart anti-hypertensive medications. Discharge Time: 33 minutes Exam Vital Signs (past 8 hours): Oxygen Delivery Method Room Air Oxygen Flow Rate 0 Narrative Exam Narrative: GEN: no acute distress HEENT: moist mucous mebranes, PERRL NECK: trachea midline, no JVD CV: regular rate and rhythm PULM: clear bilaterally with no wheezes, rhonchi, rales ABD: soft, nontender, nondistended, no organomegaly, normal bowel sounds EXT: warm and well perfused, no edema NEURO: awake, alert, oriented, no focal deficits SKIN: warm, dry, no rashes noted PSYCH: pleasant, cooperative Objective Labs Result Diagrams: 01/31/21 05:18 01/31/21 05:18 [facility] Medical History Essential hypertension (Unknown) Essential hypertension with goal blood pressure less than 140/90 (09/06/15) Hyperglycemia (09/06/15) Hyperglycemia (~2013) Hyperlipidemia (Unknown) Pure hypercholesterolemia (09/06/15) Surgical History No history of previous surgery Family History Father Diabetes mellitus Social History household members: spouse occupational status: employed leisure activities: exercise Smoking Status: Never smoker second hand exposure: No alcohol intake: current substance use type: marijuana Discharge Plan Discharge Plan Patient Disposition: Home Provider Discharge Comment: Mr. Tatum came in to the hospital after passing out. He was found to have some kidney strain that resolved with IV fluids, lik carol from dehydration and probably related to his blood pressure medication. He was monitored in the hospital and did well, with evidence of a slightly enlarged heart probably from his history of high blood pressure. He had a stress test that was normal. He was able to be discharged home. He will be recommended baby aspirin daily, he will be recommended to hold off on his blood pressure medication until following up with his PCP. Discharge orders & Medications Prescriptions: New aspirin 81 mg Tablet,Delayed Release (Dr/Ec) 81 mg PO DAILY Qty: 30 RF: 0 Continued metformin [Glucophage] 500 mg tablet 500 mg PO BIDCC Qty: 180 RF: 3 atorvastatin [Lipitor] 40 mg tablet 40 mg PO HS Qty: 90 RF: 3 Discontinued losartan-hydrochlorothiazide 100-12.5 mg tablet 1 tab PO QDAY Qty: 90 RF: 3 Follow up/Referrals: Jacqui Murillo ARNP [Primary Care Provider] - Diet/Activity/Treatments Diet: Carb-consistent/Diabetic and Low-cholesterol Discharge Data Primary Care Provider: Jacqui Murillo Attending Provider: Jamel Guerrero VTE Deep Vein Thrombosis/Pulmonary Embolism Present on Admission: No MIPS - DC The patient has current or prior documentation of left ventricular ejection fraction (LVEF) less than 40%, or moderate or severely depressed left ventricular systolic function.: No
--- NOTE | 2021-01-31 12:30 | CM.DANOTE ---
DCP: Case received, EMR reviewed and met with patient. Introduced self and role. , Paula, was also at bedside. Was able to obtain information regarding patient's baseline activity level prior to hospitalization. DCP assessment completed with information currently available. Patient is a 55 year old male who admitted yesterday afternoon to the care of the hospitalist team. PCP: TIANA Durán. Payer: confirmed: [facility]. Patient came to the hospital via private vehicle secondary to syncopal episodes. Patient had been working out at the gym, on the exercise bike and elipitical, and had become diggy. He had also indicated that when he had gotten home, he had passed out, doesn't remember, until his helped him up. She had then brought him here to the emergency room. He is here for cardiac evaluation. Met with patient and , at bedside. They are both pleasant, and reside in [place].He is independent, works out at the gym every morning, and is an active biker. He is employed as a teacher in the [employer]. P: DCP to continue to follow. Patient should be able to go home when he is deemed medically stable. He may be having a stress test today. Sabine Mcallister, APRIL/[employer]
--- NOTE | 2021-02-14 10:22 | PC.NURSE ---
Late Entry; NS infusion initiated 01/30 at 1658, complete at 1759.
== END 2021-01-31 14:00 | disposition home or self-care (01) ==
LOC: ED 13:09 → AC 13:09
PROVIDERS: Admitting Provider Internal Medicine; Emergency Provider Emergency Medicine; PCP Nurse Practitioner; Referring Provider Emergency Medicine; Visit Provider Internal Medicine
DX: R55 Syncope and collapse (principal); I25.9 Chronic ischemic heart disease, unspecified; N17.9 Acute kidney failure, unspecified; R73.03 Prediabetes; I10 Essential (primary) hypertension; E78.5 Hyperlipidemia, unspecified; E66.9 Obesity, unspecified; Z68.37 Body mass index [BMI] 37.0-37.9, adult; Z20.822 Contact with and (suspected) exposure to COVID-19; Z79.84 Long term (current) use of oral hypoglycemic drugs
CPT/HCPCS: 36415; 71045; 76770; 80048; 80053; 81003; 81015; 82550; 82553; 82962; 83690; 83735; 84484; 85007; 85025; 87086; 87635; 93005; 93017; 93306; 96360; 96372; 99284; C9803; G0378; J1650; J1815

== ENCOUNTER → 2021-07-12 07:40 | Outpatient (CLI) | payer OTHER, SELFPAY ==
[2021-01-30 13:16] VITALS: BMI 37.6
[2021-07-12 09:30] LABS: Hematocrit 45.3 % (41-53); Hemoglobin 15.5 g/dL (13.5-17.5); Mean Corpuscular HGB Conc 34.2 % (30-36); Mean Corpuscular Hemoglobin 29.6 PG (26-34); Mean Corpuscular Volume 86.7 fL (80-100); Platelet Count 246 X10^3/uL (150-400); Red Blood Cell Count 5.23 X10^6/uL (4.5-5.9); Red Cell Distribution Width 15.9 % (11.6-14.8); White Blood Cell Count 4.9 X10^3/uL (4.5-11.0)
[2021-07-12 09:47] LABS: Hemoglobin A1C% w Est Avg Glu 5.4 % (4.0-6.0)
[2021-07-12 09:58] LABS: Alanine Aminotransferase 26 IU/L (<50); Albumin 4.6 g/dL (3.5-5.0); Albumin Globulin Ratio 1.5 (1.0-2.8); Alkaline Phosphatase 42 U/L (38-126); Aspartate Aminotransferase 40 IU/L (17-59); BUN Creatinine Ratio 15.2 (6-22); Blood Urea Nitrogen 17 mg/dL (9-20); Calcium 9.5 mg/dL (8.4-10.2); Carbon Dioxide 28 mmol/L (22-32); Chloride 104 mmol/L (98-107); Cholesterol 150 mg/dL (140-199); Estimated Glomerular Filt Rate > 60.0 mL/min (>60); Glucose 104 mg/dL (70-100); HDL Cholesterol 41 mg/dL (40-60); HEMOLYSIS < 15 (0-50); LDL Cholesterol Calculated 91 mg/dL (<100); Potassium 5.1 mmol/L (3.4-5.1); Sodium 137 mmol/L (137-145); Total Protein 7.6 g/dL (6.3-8.2); Triglycerides 90 mg/dL (35-150)
[2021-07-12 09:59] LABS: Creatinine Urine Random 76.3 mg/dL
[2021-07-12 10:03] LABS: Microalbumin Urine Random 1.3 mg/dL (0-1.6)
[2021-07-12 10:16] LABS: Free T3, Triiodothyronine Free 3.33 pg/mL (2.77-5.27); Free T4, Direct Thyroxine 0.93 ng/dL (0.78-2.19)
[2021-07-12 10:26] LABS: Prostate Specific Antigen 0.529 ng/mL (0.10-4.00)
[2021-07-12 10:29] LABS: Thyroid Stimulating Hormone 1.14 uIU/mL (0.47-4.68)
== END ==
PROVIDERS: PCP Nurse Practitioner; Referring Provider Nurse Practitioner; Visit Provider Nurse Practitioner
DX: Z00.00 Encounter for general adult medical examination without abnormal findings (principal); R73.03 Prediabetes; I10 Essential (primary) hypertension; E78.00 Pure hypercholesterolemia, unspecified; Z79.899 Other long term (current) drug therapy; Z12.5 Encounter for screening for malignant neoplasm of prostate
CPT/HCPCS: 36415; 80053; 80061; 82043; 82570; 83036; 84153; 84439; 84443; 84481; 85027

== ENCOUNTER → 2021-12-05 08:49 | Outpatient (CLI) | payer OTHER, SELFPAY ==
[2021-01-30 13:16] VITALS: BMI 37.6
[2021-12-05 09:40] LABS: Hemoglobin A1C% w Est Avg Glu 5.5 % (4.0-6.0)
[2021-12-05 10:41] LABS: Alanine Aminotransferase 28 IU/L (<50); Albumin 4.2 g/dL (3.5-5.0); Albumin Globulin Ratio 1.5 (1.0-2.8); Alkaline Phosphatase 52 U/L (38-126); Aspartate Aminotransferase 32 IU/L (17-59); BUN Creatinine Ratio 14.9 (6-22); Bilirubin Total 0.7 mg/dL (0.2-1.3); Blood Urea Nitrogen 15 mg/dL (9-20); Calcium 8.9 mg/dL (8.4-10.2); Carbon Dioxide 26 mmol/L (22-32); Chloride 103 mmol/L (98-107); Estimated Glomerular Filt Rate > 60 mL/min (>60); Globulin 2.8 g/dL (1.7-4.1); Glucose 98 mg/dL (70-100); HEMOLYSIS < 15 (0-50); Potassium 4.6 mmol/L (3.4-5.1); Sodium 138 mmol/L (137-145)
[2021-12-05 10:56] LABS: Free T3, Triiodothyronine Free 3.47 pg/mL (2.77-5.27); Free T4, Direct Thyroxine 0.85 ng/dL (0.78-2.19)
[2021-12-05 11:10] LABS: Thyroid Stimulating Hormone 2.37 uIU/mL (0.47-4.68)
== END ==
PROVIDERS: PCP Nurse Practitioner; Referring Provider Nurse Practitioner; Visit Provider Nurse Practitioner
DX: E78.00 Pure hypercholesterolemia, unspecified (principal); I10 Essential (primary) hypertension; R73.03 Prediabetes
CPT/HCPCS: 36415; 80053; 83036; 84439; 84443; 84481

== ENCOUNTER → 2022-04-09 09:11 | Outpatient (CLI) | payer OTHER, SELFPAY ==
[2021-01-30 13:16] VITALS: BMI 37.6
[2022-04-09 11:03] LABS: COVID19 -Nasal RAPID Negative (Negative)
== END ==
PROVIDERS: PCP Nurse Practitioner; Visit Provider Surgery
DX: Z20.822 Contact with and (suspected) exposure to COVID-19 (principal); Z01.812 Encounter for preprocedural laboratory examination
CPT/HCPCS: 87635; C9803

== ENCOUNTER 2022-04-10 08:59 | Day surgery (SDC) | payer OTHER, SELFPAY ==
[2021-01-30 13:16] VITALS: BMI 37.6
[2022-04-10 09:16] VITALS: BP 149/85; PULSE 64; RESP 16; TEMP 36.5; O2SAT 98; BMI 34.2
[2022-04-10] MEDS: LACTATED RINGERS 1,000 ML 84 ML IV (09:34)
--- NOTE | 2022-04-10 09:48 | P.HP_ITS ---
History of Present Illness History of Present Illness Date Patient Seen: 04/10/22 Time Patient Seen: 09:56 Chief complaint: Colonoscopy Narrative: colon cancer screening, first scope, no family history or symptoms concerning for colon cancer. Patient History Medical History Essential hypertension (Unknown) Essential hypertension with goal blood pressure less than 140/90 (09/06/15) Hyperglycemia (~2013) Hyperlipidemia (Unknown) Pure hypercholesterolemia (09/06/15) Surgical History No history of previous surgery Family & Social History Family History Father Diabetes mellitus Social History: household members spouse Tobacco & Substance use: Smoking Status Never smoker alcohol intake current alcohol intake frequency a few times a month Substance Use Type does not use Meds Home Medications and Allergies Home Medications Medication Instructions Recorded Confirmed Type aspirin 81 mg tablet,delayed 81 mg PO DAILY #30 tabs 01/31/21 04/10/22 Rx release metformin 500 mg tablet 500 mg PO BIDCC #180 tabs 06/30/21 12/01/21 Rx atorvastatin 40 mg tablet (Lipitor) 40 mg PO HS #90 tabs 07/21/21 12/01/21 Rx losartan 50 mg tablet 100 mg PO DAILY #180 tabs 12/01/21 12/01/21 Rx sodium,potassium,mag sulfates 17.5 See Rx Instructions PO .COMPLEX 03/24/22 Rx gram-3.13 gram-1.6 gram oral soln #354 mL (Suprep Bowel Prep Kit) Allergies Allergy/AdvReac Type Severity Reaction Status Date / Time lisinopril [LISINOPRIL] Allergy Intermediate hives and Verified 04/10/22 09:13 swollen hands Review of Systems Review of Systems ROS: Yes All systems reviewed with the patient and are negative except as otherwise documented Exam Vital Signs (past 8 hours): - 04/10/22 09:16 Temperature 97.7 F Pulse Rate 64 Respiratory Rate 16 Blood Pressure 149/85 H Pulse Oximetry 98 Oxygen Delivery Method Room Air Oxygen Delivery Method Room Air Const General: cooperative and healthy appearing [facility] Head: normocephalic and atraumatic Eyes General: appearance normal, both eyes and all related structures Neck Neck: trachea midline Chest Chest: normal inspection of the chest Resp Effort & Inspection: normal respiratory effort and able to speak in complete sentences Cardio Rate: regular rate Rhythm: regular rhythm Skin General: no rashes or lesions noted Neuro General: patient alert, patient awake and patient oriented x3 Extrem General: normal to inspection Psych Appearance: grossly normal Judgment: judgment good Assessment & Plan Assessment & Plan narrative: colon cancer screening with colonoscopy using MAC COVID-19 COVID-19 status: Negative Time Spent With Patient Time with patient: less than 30 minutes Critical Care time: I spent a total of [] minutes of critical care time on this patient's care today; this time is exclusive of procedural time.
--- NOTE | 2022-04-10 10:18 | PM.OP.COLON ---
Operative Date/Time/Diagnoses Date of procedure: 04/10/22 Time of procedure: 10:19 Pre-op diagnosis: Colon cancer screening Post-op diagnosis: same Procedure & Clinicians Study performed: Colon cancer screening using colonoscopy with MAC Same procedure as scheduled: Yes Indications: Colon cancer screening Surgeon: Annemarie Ochoa Procedure Notes Procedure in detail: Preop diagnosis: Colon cancer screening Postop diagnosis: Same Operative procedure: Colonoscopy with MAC Surgeon: Bibi Ochoa MD Findings: No polyps, mild diverticulosis of the sigmoid colon with small diverticuli Procedure: Patient placed in lateral position. Rectal exam performed showing normal tone no masses. Colonoscope inserted in the rectum advanced to ileocecal valve with minimal difficulty. Insufflation extraction of the scope and the above findings. Impression: No polyps; mild, small diverticuli in the sigmoid colon Plan: Repeat colonoscopy in 10 years unless otherwise indicated a change in clinical condition. Findings: divertiulosis Specimen(s): none sent Complications: none Post-procedure Recommendations: Colonoscopy in 10 years Follow up: as needed Disposition: PACU
[2022-04-10 10:22] VITALS: BP 125/67; PULSE 66; RESP 15; TEMP 36.5; O2SAT 97
[2022-04-10 10:27] VITALS: BP 124/73; PULSE 66; RESP 16; O2SAT 97
[2022-04-10 10:32] VITALS: BP 123/79; PULSE 65; RESP 16; TEMP 36.4; O2SAT 97
[2022-04-10 10:39] VITALS: BP 122/71; PULSE 61; RESP 15; TEMP 36.5; O2SAT 97
[2022-04-10 11:03] VITALS: BP 125/81; PULSE 65; RESP 14; TEMP 36.5; O2SAT 98
== END 2022-04-10 11:03 | disposition home or self-care (01) ==
PROVIDERS: PCP Nurse Practitioner; Referring Provider Surgery; Visit Provider Surgery
PROC: 0DJD8ZZ Inspection of Lower Intestinal Tract, Via Natural or Artificial Opening Endoscopic (ICD-10-PCS; CPT 45378; principal; 2022-04-10 10:00)
DX: Z12.11 Encounter for screening for malignant neoplasm of colon (principal); K57.30 Diverticulosis of large intestine without perforation or abscess without bleeding
CPT/HCPCS: 45378; J2250; J2704

== ENCOUNTER → 2022-07-04 08:27 | Outpatient (CLI) | payer OTHER, SELFPAY ==
[2021-01-30 13:16] VITALS: BMI 37.6
[2022-07-04 10:36] LABS: Creatinine Urine Random 83.6 mg/dL
[2022-07-04 10:41] LABS: Microalbumin Urine Random < 0.6 mg/dL (0-1.6)
[2022-07-04 11:08] LABS: Hemoglobin A1C% w Est Avg Glu 5.5 % (4.0-6.0)
[2022-07-04 11:52] LABS: Free T4, Direct Thyroxine 0.86 ng/dL (0.78-2.19)
[2022-07-04 11:58] LABS: Alanine Aminotransferase 25 IU/L (<50); Albumin 4.5 g/dL (3.5-5.0); Albumin Globulin Ratio 1.6 (1.0-2.8); Alkaline Phosphatase 53 U/L (38-126); Aspartate Aminotransferase 31 IU/L (17-59); BUN Creatinine Ratio 16.7 (6-22); Bilirubin Total 0.9 mg/dL (0.2-1.3); Blood Urea Nitrogen 16 mg/dL (9-20); Calcium 9.5 mg/dL (8.4-10.2); Carbon Dioxide 27 mmol/L (22-32); Chloride 100 mmol/L (98-107); Cholesterol 128 mg/dL (140-199); Estimated Glomerular Filt Rate > 60 mL/min (>60); Globulin 2.8 g/dL (1.7-4.1); Glucose 97 mg/dL (70-100); HDL Cholesterol 41 mg/dL (40-60); HEMOLYSIS 24 (0-50); LDL Cholesterol Calculated 70 mg/dL (<100); Sodium 137 mmol/L (137-145); Total Protein 7.3 g/dL (6.3-8.2); Triglycerides 87 mg/dL (35-150)
[2022-07-04 12:05] LABS: Thyroid Stimulating Hormone 1.24 uIU/mL (0.47-4.68)
[2022-07-04 12:29] LABS: Prostate Specific Antigen 0.538 ng/mL (0.10-4.00)
[2022-07-04 12:39] LABS: Potassium 5.5 mmol/L (3.4-5.1)
[2022-07-05 14:46] LABS: Hep C Virus Ab w/Reflex Quant NEGATIVE s/c (NEGATIVE)
== END ==
PROVIDERS: PCP Nurse Practitioner; Referring Provider Nurse Practitioner; Visit Provider Nurse Practitioner
DX: E78.00 Pure hypercholesterolemia, unspecified (principal); I10 Essential (primary) hypertension; R73.03 Prediabetes; Z79.899 Other long term (current) drug therapy; Z11.59 Encounter for screening for other viral diseases; Z12.5 Encounter for screening for malignant neoplasm of prostate
CPT/HCPCS: 36415; 80053; 80061; 82043; 82570; 83036; 84153; 84439; 84443; 84481; 86803

== ENCOUNTER → 2022-11-09 08:58 | Outpatient (CLI) | payer OTHER, SELFPAY ==
[2021-01-30 13:16] VITALS: BMI 37.6
[2022-11-09 10:50] LABS: Alanine Aminotransferase 23 IU/L (<50); Albumin 3.9 g/dL (3.5-5.0); Albumin Globulin Ratio 1.4 (1.0-2.8); Alkaline Phosphatase 47 U/L (38-126); Aspartate Aminotransferase 29 IU/L (17-59); BUN Creatinine Ratio 16.7 (6-22); Bilirubin Total 0.7 mg/dL (0.2-1.3); Blood Urea Nitrogen 16 mg/dL (9-20); Calcium 8.5 mg/dL (8.4-10.2); Carbon Dioxide 23 mmol/L (22-32); Chloride 105 mmol/L (98-107); Estimated Glomerular Filt Rate > 60 mL/min (>60); Globulin 2.8 g/dL (1.7-4.1); Glucose 103 mg/dL (70-100); HEMOLYSIS 17 (0-50); Potassium 4.1 mmol/L (3.4-5.1); Sodium 136 mmol/L (137-145); Total Protein 6.7 g/dL (6.3-8.2)
[2022-11-09 18:30] LABS: HIV 1 & 2 Ab/Ag 4th Gen Combo NEGATIVE (NEGATIVE)
== END ==
PROVIDERS: PCP Nurse Practitioner; Referring Provider Nurse Practitioner; Visit Provider Nurse Practitioner
DX: Z11.4 Encounter for screening for human immunodeficiency virus [HIV] (principal); E87.5 Hyperkalemia; I10 Essential (primary) hypertension
CPT/HCPCS: 36415; 80053; 87389

== ENCOUNTER → 2023-11-13 08:31 | Outpatient (CLI) | payer OTHER, SELFPAY ==
[2021-01-30 13:16] VITALS: BMI 37.6
[2023-11-13 08:52] LABS: Add Manual Diff / Slide Review NO; Basophils Absolute Auto 100 /uL (0-100); Basophils Percent Auto 1.4 % (0-2); Eosinophils Absolute Auto 400 /uL (0-450); Hematocrit 46.1 % (41-53); Hemoglobin 15.7 g/dL (13.5-17.5); Lymphocytes Absolute Auto 1000 /uL (1100-4500); Lymphocytes Percent Auto 19.5 % (25-40); Mean Corpuscular HGB Conc 34.1 % (30-36); Mean Corpuscular Hemoglobin 29.8 PG (26-34); Mean Corpuscular Volume 87.5 fL (80-100); Monocytes Absolute Auto 400 /uL (0-900); Neutrophils Absolute Auto 3500 /uL (1500-7000); Neutrophils Percent Auto 65.1 % (50-75); Platelet Count 239 X10^3/uL (150-400); Red Blood Cell Count 5.27 X10^6/uL (4.5-5.9); Red Cell Distribution Width 14.8 % (11.6-14.8); White Blood Cell Count 5.4 X10^3/uL (4.5-11.0)
[2023-11-13 09:02] LABS: Hemoglobin A1C% w Est Avg Glu 5.3 % (4.0-6.0)
[2023-11-13 09:19] LABS: Alanine Aminotransferase 31 IU/L (<50); Albumin 4.4 g/dL (3.5-5.0); Albumin Globulin Ratio 1.6 (1.0-2.8); Alkaline Phosphatase 59 U/L (38-126); Aspartate Aminotransferase 38 IU/L (17-59); BUN Creatinine Ratio 15.6 (6-22); Blood Urea Nitrogen 17 mg/dL (9-20); Calcium 9.4 mg/dL (8.4-10.2); Carbon Dioxide 26 mmol/L (22-32); Chloride 107 mmol/L (98-107); Cholesterol 144 mg/dL (140-199); Estimated Glomerular Filt Rate > 60 mL/min (>60); Globulin 2.8 g/dL (1.7-4.1); Glucose 101 mg/dL (70-100); HDL Cholesterol 46 mg/dL (40-60); HEMOLYSIS < 15 (0-50); LDL Cholesterol Calculated 79 mg/dL (<100); Potassium 5.1 mmol/L (3.4-5.1); Sodium 139 mmol/L (137-145); Total Protein 7.2 g/dL (6.3-8.2); Triglycerides 94 mg/dL (35-150)
[2023-11-13 09:36] LABS: Free T3, Triiodothyronine Free 3.76 pg/mL (2.77-5.27); Free T4, Direct Thyroxine 0.79 ng/dL (0.78-2.19)
[2023-11-13 09:50] LABS: Thyroid Stimulating Hormone 1.39 uIU/mL (0.47-4.68)
[2023-11-13 10:15] LABS: Creatinine Urine Random 181.14 mg/dL
[2023-11-13 10:20] LABS: Microalbumin Urine Random 2.3 mg/dL (0-1.6)
== END ==
PROVIDERS: PCP Nurse Practitioner; Referring Provider Nurse Practitioner; Visit Provider Nurse Practitioner
DX: Z00.00 Encounter for general adult medical examination without abnormal findings (principal); R73.03 Prediabetes
CPT/HCPCS: 36415; 80053; 80061; 82043; 82570; 83036; 84439; 84443; 84481; 85025

== ENCOUNTER → 2024-11-04 08:10 | Outpatient (CLI) | payer OTHER, SELFPAY ==
[2024-06-20 11:07] VITALS: BMI 37.6
[2024-11-04 09:22] LABS: Add Manual Diff / Slide Review NO; Basophils Absolute Auto 100 /uL (0-100); Basophils Percent Auto 1.2 % (0-2); Eosinophils Absolute Auto 300 /uL (0-450); Eosinophils Percent Auto 4.7 % (2-4); Hematocrit 43.4 % (41-53); Hemoglobin 14.8 g/dL (13.5-17.5); Lymphocytes Absolute Auto 1100 /uL (1100-4500); Mean Corpuscular HGB Conc 34.1 % (30-36); Mean Corpuscular Hemoglobin 29.8 PG (26-34); Mean Corpuscular Volume 87.4 fL (80-100); Monocytes Absolute Auto 500 /uL (0-900); Monocytes Percent Auto 7.9 % (3-14); Neutrophils Absolute Auto 4100 /uL (1500-7000); Neutrophils Percent Auto 68.2 % (50-75); Platelet Count 212 X10^3/uL (150-400); Red Blood Cell Count 4.96 X10^6/uL (4.5-5.9); Red Cell Distribution Width 15.8 % (11.6-14.8)
[2024-11-04 09:43] LABS: Hemoglobin A1C% w Est Avg Glu 5.3 % (4.0-6.0)
[2024-11-04 09:58] LABS: Creatinine Urine Random 69.19 mg/dL
[2024-11-04 09:59] LABS: Alanine Aminotransferase 29 IU/L (<50); Albumin 4.3 g/dL (3.5-5.0); Albumin Globulin Ratio 1.7 (1.0-2.8); Alkaline Phosphatase 53 U/L (38-126); Aspartate Aminotransferase 31 IU/L (17-59); Bilirubin Total 0.7 mg/dL (0.2-1.3); Blood Urea Nitrogen 20 mg/dL (9-20); Calcium 9.6 mg/dL (8.4-10.2); Carbon Dioxide 25 mmol/L (22-32); Chloride 105 mmol/L (98-107); Cholesterol 154 mg/dL (140-199); Estimated Glomerular Filt Rate > 60 mL/min (>60); Globulin 2.6 g/dL (1.7-4.1); Glucose 105 mg/dL (70-99); HDL Cholesterol 41 mg/dL (40-60); HEMOLYSIS < 15 (0-50); LDL Cholesterol Calculated 94 mg/dL (<100); Sodium 136 mmol/L (137-145); Total Protein 6.9 g/dL (6.3-8.2); Triglycerides 95 mg/dL (35-150)
[2024-11-04 10:06] LABS: Microalbumin Urine Random < 0.6 mg/dL (0-1.6)
[2024-11-04 10:13] LABS: Free T3, Triiodothyronine Free 3.95 pg/mL (2.77-5.27); Free T4, Direct Thyroxine 0.86 ng/dL (0.78-2.19)
[2024-11-04 10:27] LABS: Thyroid Stimulating Hormone 0.845 uIU/mL (0.47-4.68)
== END ==
PROVIDERS: PCP Nurse Practitioner; Referring Provider Registered Nurse Diabetes Educator; Visit Provider Registered Nurse Diabetes Educator
DX: Z00.00 Encounter for general adult medical examination without abnormal findings (principal)
CPT/HCPCS: 80053; 80061; 82043; 82570; 83036; 84439; 84443; 84481; 85025

== ENCOUNTER → 2024-11-23 08:46 | Outpatient (CLI) | payer OTHER, SELFPAY ==
[2024-06-20 11:07] VITALS: BMI 37.6
--- NOTE | 2024-11-23 08:48 | DI.RAD.S_ITS ---
PROCEDURE: XR CHEST 2V INDICATIONS: eval chronic cough TECHNIQUE: 2 views of the chest were acquired. COMPARISON: [facility], CR, XR CHEST 1V, 01/30/2021, 9:05. FINDINGS: Surgical changes and devices: None. Lungs and pleura: Lungs are clear. No pleural effusions or pneumothorax. Mediastinum: Mediastinal contours are normal. Heart size is normal. Bones and chest wall: No suspicious bony abnormalities. Soft tissues appear unremarkable. IMPRESSION: No acute cardiopulmonary abnormality is seen. Dictated by: Luciano Jordan M.D. on 11/23/2024 at 15:30 Approved by: Luciano Jordan M.D. on 11/23/2024 at 15:41
== END ==
PROVIDERS: PCP Registered Nurse Diabetes Educator; Referring Provider Registered Nurse Diabetes Educator; Visit Provider Registered Nurse Diabetes Educator
DX: R05.3 Chronic cough (principal)
CPT/HCPCS: 71046

== ENCOUNTER → 2025-03-03 08:16 | Outpatient (CLI) | payer OTHER, SELFPAY ==
[2024-06-20 11:07] VITALS: BMI 37.6
[2025-03-03 09:24] LABS: Estimated Glomerular Filt Rate > 60 mL/min (>60)
== END ==
PROVIDERS: Radiology Diagnostic Radiology; PCP Registered Nurse Diabetes Educator; Referring Provider Registered Nurse Diabetes Educator; Visit Provider Psychologist Clinical
DX: I65.01 Occlusion and stenosis of right vertebral artery (principal)
CPT/HCPCS: 36415; 82565

== ENCOUNTER → 2025-03-17 10:51 | Outpatient (CLI) | payer OTHER, SELFPAY ==
[2024-06-20 11:07] VITALS: BMI 37.6
--- NOTE | 2025-03-17 10:52 | DI.CT.S_ITS ---
PROCEDURE: CT ANGIO HEAD AND NECK INDICATIONS: further eval bilateral carotid arteries/quantify stenosis TECHNIQUE: After the administration of intravenous contrast, 1 mm thick sections acquired from the aortic arch through the [place]. 3-dimensional lvzqzhm-ozuentfpl-menhpjprht (MIP) and/or volume rendering reformats were acquired of the central intracranial vasculature and neck separately. For radiation dose reduction, the following was used: automated exposure control, adjustment of mA and/or kV according to patient size. COMPARISON: None. FINDINGS: Image quality: Diagnostic. Cerebral CT Angiogram: Internal carotid arteries: No acute findings. Intracranial ICA are patent with no significant stenosis. No occlusion. No aneurysm. Anterior cerebral arteries: Unremarkable. No significant stenosis. No occlusion. No aneurysm. Middle cerebral arteries: Unremarkable. No significant stenosis. No occlusion. No aneurysm. Posterior cerebral arteries: Unremarkable. No significant stenosis. No occlusion. No aneurysm. Basilar artery: Unremarkable. No significant stenosis. No occlusion. No aneurysm. Vertebral arteries: Unremarkable as visualized. Dural venous sinuses: Unremarkable given phase of enhancement. Other: Arterial phase appearance of the brain parenchyma is unremarkable. Neck CT Angiogram: Internal carotid arteries: Mild atherosclerotic plaques proximal. No significant stenosis. No dissection or occlusion. Common carotid arteries: Unremarkable. No significant stenosis. No dissection or occlusion. External carotid arteries: Unremarkable. No occlusion. Vertebral arteries: Unremarkable. No significant stenosis. No dissection or occlusion. Aortic Arch and Mediastinum: Partially visualized aortic arch unremarkable without evidence of aneurysm. Origins of the great vessels unremarkable. Other: Arterial phase soft tissues of the neck and chest are unremarkable. IMPRESSION: No significant intracranial arterial abnormality is seen. No significant abnormality is seen within the arteries of the neck. Any quantitative measurements of stenosis were performed using NASCET criteria. Approved by: Ari Garrido M.D. on 03/17/2025 at 17:19
== END ==
LOC: CT 10:51
PROVIDERS: PCP Registered Nurse Diabetes Educator; Referring Provider Registered Nurse Diabetes Educator; Visit Provider Registered Nurse Diabetes Educator
DX: I65.23 Occlusion and stenosis of bilateral carotid arteries (principal)
CPT/HCPCS: 70496; 70498; Q9967